=== PATIENT | male | born 1940 | race Caucasian/White ===

== ENCOUNTER 2019-07-22 17:30 | Inpatient (IN) | payer MEDICARE, OTHER ==
[~2019-07-22] VITALS: Ht 185.4 cm; Wt 90.7 kg
[~2019-07-22 17:30] MED LIST: MEDROL DOSE PACK4 MG PO
--- NOTE | 2019-07-22 17:54 | NUR ---
RECEIVED TO ROOM 2220 VIA FROM ADMISSIONS VIA DR. WAGNER' OFFICE. A/O X3. SKIN INTACT WITHOUT REDNESS EXCEPT LEFT LOWER EXTREMETY WHICH IS REDDENED AND EDEMATOUS. REPORTEDLY PAINFUL TO WALK ON. WILL MONITOR.
[2019-07-22] MEDS ORDERED: METOPROLOL TART50 MG PO (18:01)
[2019-07-22] MEDS ORDERED: VIBRAMYCIN 100100 MG PO (18:01)
[2019-07-22] MEDS ORDERED: LISINOPRIL-HCT1 EAC4 PO (18:03)
[2019-07-22] MEDS ORDERED: TOPROL XL25 MG PO (18:04)
[2019-07-22] MEDS ORDERED: PEPCID AC20 MG PO (18:05)
[2019-07-22] MEDS ORDERED: PROSCAR5 MG PO (18:05)
[2019-07-22] MEDS ORDERED: COUMADIN5 MG PO (18:05)
[2019-07-22] MEDS ORDERED: FLUTICASONE PRO16 GM NASAL (18:07)
[2019-07-22] MEDS ORDERED: PROTONIX40 MG PO (18:07)
[2019-07-22] MEDS ORDERED: LEVOXYL50 MCG PO (18:08)
[2019-07-22] MEDS ORDERED: LIPITOR40 MG PO (18:08)
[2019-07-22] MEDS ORDERED: REVATIO20 MG PO (18:09)
[2019-07-22 18:11] VITALS: BP 165/88; BMI 26.4
--- NOTE | 2019-07-22 18:45 | NUR ---
IV SITED TO RIGHT WRIST AFTER ONE ATTEMPT WITH 22G. DENIES NEEDS.
[2019-07-22 19:24] LABS: INR 2.18 (0.85-1.17); PROTIME 23.6 SECONDS (11.6-15.0)
[2019-07-22 19:30] LABS: ANION GAP 9.8 mmol/L (8-16); CALCIUM 8.6 mg/dL (8.5-10.1); CARBON DIOXIDE 29.6 mmol/L (21.0-32.0); CREATININE - SERUM 1.1 mg/dL (0.6-1.3); POTASSIUM - SERUM 3.4 mmol/L (3.5-5.1)
[2019-07-22 21:02] VITALS: BP 157/82
--- NOTE | 2019-07-22 22:00 | NUR ---
PT C/O RIGHT WRIST IV BURNING AND SWOLLEN. REMOVED IV CATHETER INTACT. APPLIED MOIST HEAT TO SITE. 20G IV RESITED TO RIGHT FOREARM 1ST ATTEMPT BY LUMZA MALDONADO. RESUMED IV ANTIBIOTIC. LEFT FOOT ELEVATED WITH K-PAD ON 20 MINUTE CYCLES. SCD'S ON. NO OTHER NEEDS. AT BEDSIDE. WILL CONTINUE TO MONITOR.
[2019-07-22] MEDS ORDERED: PLAVIX75 MG PO (22:24)
[2019-07-23 01:20] VITALS: BP 135/71
[2019-07-23 06:47] LABS: CALC OSMOLALITY 286 mosm/kg (275-300); CALCIUM 8.3 mg/dL (8.5-10.1); CHLORIDE - SERUM 105 mmol/L (98-107); GLUCOSE 123 mg/dL (74-106); POTASSIUM - SERUM 3.6 mmol/L (3.5-5.1); SODIUM 142 mmol/L (136-145); UREA NITROGEN 22 mg/dL (7-18); eGFR NON AFRICAN AMERICAN 76 mL/min (90-120)
[2019-07-23 06:48] LABS: BASOPHILS 0.1 % (0-2); EOSINOPHILS 0.1 % (0-7); HEMATOCRIT 34.4 % (42.0-54.0); HEMOGLOBIN 11.5 g/dL (13.5-17.5); IMMATURE GRANULOCYTES 0.3 % (0-5); MCH 28.5 pg (26.0-34.0); MCHC 33.4 g/dL (31.0-37.0); MCV 85.1 fL (80.0-100.0); MEAN PLATELET VOLUME 10.5 fL (7.4-10.4); MONOCYTES 6.2 % (2-11); NEUTROPHILS 81.3 % (40-80); PLATELET COUNT 274 10x3/uL (130-400); RBC 4.04 10x6/uL (4.20-6.10); RDW 14.2 % (11.5-14.5); WBC 11.2 10x3/uL (4.8-10.8)
[2019-07-23 06:56] LABS: INR 2.65 (0.85-1.17); PROTIME 27.5 SECONDS (11.6-15.0)
--- NOTE | 2019-07-23 08:00 | NUR ---
ASSESSMENT PER FLOW SHEET. PT IS WITHOUT DISTRESS.CALL LIGHT IN REACH
[2019-07-23 08:42] VITALS: Ht 185.4 cm; Wt 90.7 kg
[2019-07-23 08:56] VITALS: BP 129/77
[2019-07-23 12:40] VITALS: BP 103/46; BP 139/74
[2019-07-23 17:29] VITALS: BP 128/74
--- NOTE | 2019-07-23 20:00 | NUR ---
PT SITTING UP IN BED WITHOUT DISTRESS, AOX4. IV RIGHT FA SL, FLUSHES EASILY. SCDS ON. LEFT FOOT/ANKLE RED AND SWOLLEN. STATES NO PAIN BUT SLIGHT TENDERNESS WHEN WALKING. DENIES NEEDS, CL IN REACH, WILL CTM
[2019-07-23 20:56] VITALS: BP 146/77
[2019-07-24 05:21] VITALS: BP 135/66
--- NOTE | 2019-07-24 07:20 | NUR ---
PT RESTING IN BED. NO SIGNS OF DISTRESS. IV TO RIGHT FORARM PATENT NO REDNESS OR TENDERNESS. HAS SWELLING TO LEFT FOOT. DENIES ANY FURTHER NEED AT THIS TIME. CALL LIGHT IN REACH. BED LOW POSITION. NO FAMILY AT BEDSIDE AT THIS TIME.
[2019-07-24 09:19] VITALS: BP 152/86
[2019-07-24 12:20] VITALS: BP 154/80
--- NOTE | 2019-07-24 16:55 | NUR ---
I have reviewed this patient and I concur with the Shift Assessment completed by the Licensed Practical Nurse today this shift.
[2019-07-24 17:04] VITALS: BP 143/71
--- NOTE | 2019-07-24 19:30 | NUR ---
PT SITTING UP IN BED RESTING WITHOUT DISTRESS, AOX4. AT BEDSIDE. SCDS ON. USING KPAD FOR 20MIN INTERVALS ON LEFT FOOT. NO REDNESS, SLIGHT SWELLING. DENIES PAIN OR NEEDS. CL IN REACH, WILL CTM
[2019-07-24 20:00] VITALS: BP 140/75; BP 176/100
[2019-07-25 02:00] VITALS: BP 162/82
[2019-07-25 04:00] VITALS: BP 116/54
[2019-07-25 06:04] LABS: BASOPHILS 0.5 % (0-2); EOSINOPHILS 1.7 % (0-7); HEMOGLOBIN 11.5 g/dL (13.5-17.5); IMMATURE GRANULOCYTES 0.2 % (0-5); LYMPHOCYTES 26.1 % (15-50); MCH 28.4 pg (26.0-34.0); MCHC 32.9 g/dL (31.0-37.0); MCV 86.4 fL (80.0-100.0); MEAN PLATELET VOLUME 9.6 fL (7.4-10.4); MONOCYTES 11.4 % (2-11); NEUTROPHILS 60.1 % (40-80); PLATELET COUNT 294 10x3/uL (130-400); RBC 4.05 10x6/uL (4.20-6.10); RDW 14.1 % (11.5-14.5)
[2019-07-25 06:24] LABS: WBC 6.3 10x3/uL (4.8-10.8)
[2019-07-25 06:37] LABS: CALC OSMOLALITY 290 mosm/kg (275-300); CARBON DIOXIDE 28.5 mmol/L (21.0-32.0); CHLORIDE - SERUM 108 mmol/L (98-107); CREATININE - SERUM 0.9 mg/dL (0.6-1.3); GLUCOSE 93 mg/dL (74-106); POTASSIUM - SERUM 3.5 mmol/L (3.5-5.1); SODIUM 145 mmol/L (136-145); UREA NITROGEN 18 mg/dL (7-18); eGFR NON AFRICAN AMERICAN 86 mL/min (90-120)
--- NOTE | 2019-07-25 07:16 | NUR ---
BEDSIDE REPORT RECIEVED. IV INTACT. PATIENT SITTING UP IN CHAIR. NO COMPLAINTS. CALL LIGHT WITHIN REACH.
[2019-07-25 08:21] VITALS: BP 163/93
--- NOTE | 2019-07-25 09:32 | MORECARE ---
CASE MANAGEMENT DISCHARGE SUMMARY PATIENT: JUAREZ RUSHING UNIT: [id number] ADM DATE: 07/22/19 AGE: 79 : 39 SEX: M ROOM/BED: D.2220 AUTHOR: ALTAFDOC PHYSICIAN: REFERRING PHYSICIAN: JUNG GOMEZ MD DATE OF SERVICE: 07/25/19 Discharge Plan Patient Name: JUAREZ RUSHING Facility: [facility]:[place] : 1940 Planned Disposition: Home Anticipated Discharge Date: Discharge Date: Expected LOS: Initial Reviewer: [email or web address] Initial Review Date: 07/22/2019 Generated: 07/25/19 10:32 am Comments DCP- Discharge Planning Updated by [email or web address]: Delaney Price on 07/25/19 8:[address] Patient Name: JUAREZ RUSHING Admission Status: Urgent Accout number: [id number] Admission Date: 07-22-2019 : 1940 Admission Diagnosis: Attending: JUNG GOMEZ Current LOS: 3 Anticipated DC Date: Planned Disposition: Home Primary Insurance: MEDICARE A & B Discharge Planning Comments: CM met with patient to complete initial dc planning assessment. CM educated patient on the CM role and verbal consent given by patient to complete assessment. Patient lives at home with his spouse where he is independent with his care. At discharge patient plans to return home and feels this is a safe discharge. 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 CM discussed availability of home health, rehab services, and medical equipment. Patient denied known discharge needs at this time. IMM served and explained. CM will continue to follow and will assist as needed with dc plans/needs. Rehabilitation Case Coordinator: Delaney Price DCPIA - Discharge Planning Initial Assessment Updated by [email or web address]: Delaney Price on 07/25/19 9:27 am * Is the patient Alert and Oriented? Yes * How many steps to enter\exit or inside your home? * PCP PATRICIA * Pharmacy [facility] * Preadmission Environment Home with Family * ADLs Independent * Equipment None * List name and contact numbers for known caregivers / representatives who currently or will assist patient after discharge: STEPHANIE (SPOUSE) [phone] * Verbal permission to speak to the caregivers and representatives has been obtained from the patient. N/A * Community resources currently utilized None * Additional services required to return to the preadmission environment? No * Can the patient safely return to the preadmission environment? Yes * Has this patient been hospitalized within the prior 30 days at any hospital? No Coverage Notice Reviewer: [email or web address] Junior Price Notice Issued Date-Time: 07/25/2019 9:20 Notice Type: IM Discharge Notice Notice Delivered To: Patient Relationship to Patient: Online Marketing Analyst Name: Delivery Method: HAND - Hand Delivered Linnea Days: Prior Verbal Notification: Recipient Understood Notice: Yes Recipient Signature: Yes Med Rec Note Co-signed by Attending: Coverage Notice Comment: Patient Name: JUAREZ RUSHING Page [id number] at 0932 All edits/amendments must be made on the electronic document DICTATION DATE: 07/25/19931 NETWORK CABLER: KRISHNA 07/25/19931 RPT#: [id number] DC DATE: STATUS: ADM IN [facility] [address] [place] [address] END OF REPORT
--- NOTE | 2019-07-25 10:15 | NUR ---
PATIENT RECIEVED DC INSTRUCTIONS. VERBALIZED UNDERSTANDING. NO QUESTIONS AT THIS TIME. IV REMOVED WITH CATH TIP INTACT. AWAITING WC FOR DC. CALL LIGHT WITHIN REACH.
--- NOTE | 2019-08-01 14:10 | MORECARE ---
CASE MANAGEMENT DISCHARGE SUMMARY PATIENT: JUAREZ RUSHING UNIT: [id number] ADM DATE: 07/22/19 AGE: 79 : 39 SEX: M ROOM/BED: D.2220 AUTHOR: ALTAFDOC PHYSICIAN: REFERRING PHYSICIAN: JUNG GOMEZ MD DATE OF SERVICE: 08/01/19 Discharge Plan Patient Name: JUAREZ RUSHING Facility: [facility]:[place] : 1940 Planned Disposition: Home Anticipated Discharge Date: Discharge Date: 07/25/2019 Expected LOS: Initial Reviewer: [email or web address] Initial Review Date: 07/22/2019 Generated: 08/01/19 3:10 pm Comments DCP- Discharge Planning Updated by [email or web address]: Delaney Price on 07/25/19 8:[address] Patient Name: JUAREZ RUSHING Admission Status: Urgent Accout number: [id number] Admission Date: 07-22-2019 : 1940 Admission Diagnosis: Attending: JUNG GOMEZ Current LOS: 3 Anticipated DC Date: Planned Disposition: Home Primary Insurance: MEDICARE A & B Discharge Planning Comments: CM met with patient to complete initial dc planning assessment. CM educated patient on the CM role and verbal consent given by patient to complete assessment. Patient lives at home with his spouse where he is independent with his care. At discharge patient plans to return home and feels this is a safe discharge. 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 CM discussed availability of home health, rehab services, and medical equipment. Patient denied known discharge needs at this time. IMM served and explained. CM will continue to follow and will assist as needed with dc plans/needs. Leather Currier: Delaney Price DCPIA - Discharge Planning Initial Assessment Updated by [email or web address]: Delaney Price on 07/25/19 9:27 am * Is the patient Alert and Oriented? Yes * How many steps to enter\exit or inside your home? * PCP PATRICIA * Pharmacy [facility] * Preadmission Environment Home with Family * ADLs Independent * Equipment None * List name and contact numbers for known caregivers / representatives who currently or will assist patient after discharge: STEPHANIE (SPOUSE) [phone] * Verbal permission to speak to the caregivers and representatives has been obtained from the patient. N/A * Community resources currently utilized None * Additional services required to return to the preadmission environment? No * Can the patient safely return to the preadmission environment? Yes * Has this patient been hospitalized within the prior 30 days at any hospital? No Coverage Notice Reviewer: [email or web address] Junior Price Notice Issued Date-Time: 07/25/2019 9:20 Notice Type: IM Discharge Notice Notice Delivered To: Patient Relationship to Patient: International Relations Teacher Name: Delivery Method: HAND - Hand Delivered Linnea Days: Prior Verbal Notification: Recipient Understood Notice: Yes Recipient Signature: Yes Med Rec Note Co-signed by Attending: Coverage Notice Comment: Last DP export: 07/25/19 8:32 Patient Name: JUAREZ RUSHING Page [id number] at 1410 All edits/amendments must be made on the electronic document DICTATION DATE: 08/01/191409 RESORT HOUSEKEEPER: KRISHNA 08/01/19 1410 RPT#: [id number] DC DATE:07/25/19 STATUS: DIS IN [facility] [address] [place] [address] END OF REPORT
== END 2019-07-25 10:30 | disposition home or self-care (01) | DRG 549 ==
LOC: D.MS 17:30
PROVIDERS: Family Medicine; ADMIT Family Medicine; ATTEND Family Medicine
DX: M00.9 Pyogenic arthritis, unspecified (principal); L03.115 Cellulitis of right lower limb; I48.20 Chronic atrial fibrillation, unspecified; Z95.0 Presence of cardiac pacemaker; E07.9 Disorder of thyroid, unspecified